=== PATIENT | female | born 2000 | race Caucasian/White ===

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

== ENCOUNTER 2021-08-10 02:12 | Inpatient (IN) | payer OTHER, SELFPAY ==
[~2021-08-10] VITALS: Ht 167.6 cm; Wt 80.6 kg
[2021-08-10] VITALS (8 sets, daily range): BP systolic 116–135; BP diastolic 54–81
[~2021-08-10 02:12] MED LIST changes: +ACET-683 PO; -ALL10TAB29 PO; +CETI-24 PO; +DIBU28OI2 TOP; +DOCU100C16 PO; +IBUP80TA PO
[2021-08-10] MEDS ORDERED: TUMS750C22 PO (02:32)
[2021-08-10] MEDS ORDERED: LACTATED RINGER'S 1000 ML IV STA (02:49)
[2021-08-10] MEDS ORDERED: LR 1,000 ML IV SCH ×2 (02:50→04:50)
[2021-08-10] MEDS ORDERED: OXYTOCIN DRIP 30 UNITS in IV 1 EA IV PRN ×4 (02:50)
[2021-08-10] MEDS ORDERED: METHYLERGONOVINE MALEATE 0.2 MG/ML VIAL (J2210) IM PRN (02:50)
[2021-08-10] MEDS ORDERED: OXYTOCIN INJ 10 UNITS/ML VIAL (J2590) IV PRN (02:50)
[2021-08-10] MEDS ORDERED: OXYTOCIN 30 UNITS IN 0.9% NaCl 500ML IV BAG (J2590) As Ordered ONE (02:58)
[2021-08-10] MEDS ORDERED: OXYTOCIN INJ 10 UNITS/ML VIAL (J2590) As Ordered ONE (02:58)
[2021-08-10 03:16] LABS: HEMATOCRIT 30.7 % (36.0-47.0); HEMOGLOBIN 9.2 g/dl (12.0-15.5); MEAN CORPUSCULAR HEMOGLOBIN 22.6 pg (27.0-33.0); MEAN CORPUSCULAR VOLUME 75.4 fl (80.0-96.0); PLATELET COUNT, AUTOMATED 287 10^3/uL (150-450); RED BLOOD COUNT 4.07 10^6/uL (4.00-5.40); WHITE BLOOD COUNT 12.6 10^3/uL (4.0-10.0)
[2021-08-10] MEDS ORDERED: LACTATED RINGER'S 1000 ML IV PRN (03:33)
[2021-08-10] MEDS ORDERED: ONDANSETRON 4MG/2ML VIAL IV PRN (03:33)
[2021-08-10] MEDS ORDERED: REFRIGERATOR IV KEYS XX PRN (03:33)
[2021-08-10] MEDS ORDERED: FENTANYL/ROPIVACAINE/NACL BAG 100 ML EPIDURAL SCH (03:33)
[2021-08-10] MEDS ORDERED: EPIDURAL COMMENT XX SCH (03:33)
[2021-08-10] MEDS ORDERED: diphenhydrAMINE 50MG/ML VIAL (J1200) IV PRN (03:33)
[2021-08-10] MEDS ORDERED: NALOXONE INJ 0.4MG/1ML VIAL (J2310 PER 1MG) IV PRN (03:33)
[2021-08-10] MEDS ORDERED: EPIDURAL/PCA KEYS XX PRN (03:33)
[2021-08-10] MEDS ORDERED: ePHEDrine SULFATE 25 MG/5 ML(5MG/ML) SYRINGE IV PRN (03:33)
[2021-08-10] MEDS ORDERED: FENTANYL 2MCG/ML ROPIVACAINE 0.2% IN 0.9% NACL 100ML IVBAG As Ordered ONE (03:35)
[2021-08-10 04:14] LABS: CORD GAS ABE A -3.8; CORD GAS HCO3 A 21.1 MEQ/L; CORD GAS O2 SAT A 41.2 %; CORD GAS PCO2 A 37.9 mmHg; CORD GAS PH A 7.364 UNITS; CORD GAS PO2 A 17.3 mmHg; CORD GAS SBC A 20.1 MEQ/L; CORD GAS TCO2 A 22.3 MEQ/L
[2021-08-10 04:17] LABS: CORD GAS O2 SAT V 53.1 %; CORD GAS PCO2 V 35.5 mmHg; CORD GAS PH V 7.41 UNITS; CORD GAS PO2 V 20.1 mmHg; CORD GAS SBC V 21.8 MEQ/L; CORD GAS TCO2 V 23.1 MEQ/L
[2021-08-10] MEDS ORDERED: MOM 30ML SUSPENSION UDC PO PRN (04:50)
[2021-08-10] MEDS ORDERED: ANUSOL HC CREAM 30GM TOP PRN (04:50)
[2021-08-10] MEDS ORDERED: DIBUCAINE 1% OINTMENT 30GM TOP PRN (04:50)
[2021-08-10] MEDS ORDERED: OXYTOCIN DRIP 30 UNITS in IV 1 EA IV ONE (04:50)
[2021-08-10] MEDS ORDERED: RHOGAM 300 MCG (1500 IU) INJ (J2790) IM SCH (04:50)
[2021-08-10] MEDS ORDERED: ACETAMINOPHEN 650 MG SUPP PR PRN (04:50)
[2021-08-10] MEDS ORDERED: ACETAMINOPHEN TAB 650MG DOSE (2X325MG) PO PRN (04:50)
[2021-08-10] MEDS ORDERED: METHYLERGONOVINE MALEATE 0.2 MG TAB PO PRN (04:50)
[2021-08-10] MEDS ORDERED: OXYTOCIN INJ 10 UNITS/ML VIAL (J2590) IV ONE (04:50)
[2021-08-10] MEDS ORDERED: OXYTOCIN DRIP 30 UNITS in IV 1 EA IV SCH (04:50)
[2021-08-10] MEDS ORDERED: IBUPROFEN 600MG TAB PO PRN (04:50)
[2021-08-10] MEDS ORDERED: MEASLES,MUMPS,RUBELLA VACCINE INJ (MMR-II) (90707) SC SCH (04:50)
[2021-08-10] MEDS ORDERED: DOCUSATE SODIUM 100MG CAPSULE PO PRN (04:50)
[2021-08-10] MEDS: ALBUTEROL 90 MCG/ACT 8GM HFA INHALER INH SCH ×3 (04:55→20:55)
[2021-08-10] MEDS: PRENATAL VITAMINS CHEWABLE TABLET PO SCH (09:16)
[2021-08-10] MEDS: ACETAMINOPHEN 500 MG TAB PO PRN ×2 (11:28→21:15)
[2021-08-11] MEDS: ALBUTEROL 90 MCG/ACT 8GM HFA INHALER INH SCH ×3 (00:55→10:31)
[2021-08-11 05:52] VITALS: BP 108/58
[2021-08-11] MEDS ORDERED: IBUP-1022 PO (05:55)
[2021-08-11] MEDS ORDERED: ACET1TAB55 PO (05:55)
[2021-08-11] MEDS ORDERED: COLA100C5 PO (05:55)
[2021-08-11 07:26] LABS: HEMATOCRIT 30.2 % (36.0-47.0); HEMOGLOBIN 9.1 g/dl (12.0-15.5); MEAN CORPUSCULAR HEMOGLOBIN 22.1 pg (27.0-33.0); MEAN CORPUSCULAR HGB CONC 30.1 g/dl (32.0-36.5); MEAN CORPUSCULAR VOLUME 73.5 fl (80.0-96.0); PLATELET COUNT, AUTOMATED 276 10^3/uL (150-450); RED BLOOD COUNT 4.11 10^6/uL (4.00-5.40); WHITE BLOOD COUNT 13.3 10^3/uL (4.0-10.0)
[2021-08-11] MEDS: PRENATAL VITAMINS CHEWABLE TABLET PO SCH (07:48)
== END 2021-08-11 12:34 | disposition home or self-care (01) | DRG 560 ==
LOC: M LDO 02:12 → M LDI 02:38 → M OBS 05:30
PROVIDERS: ADMIT Obstetrics & Gynecology; ATTEND Obstetrics & Gynecology
PROC: 10E0XZZ Delivery of Products of Conception, External Approach (ICD-10-PCS; principal; 2021-08-10)
DX: O22.13 Genital varices in pregnancy, third trimester (principal); Z37.0 Single live birth; Z3A.39 39 weeks gestation of pregnancy